=== PATIENT | male | born 1945 | race Caucasian/White ===

== ENCOUNTER 2018-04-14 08:46 | Emergency (ER) | payer MEDICARE ==
[~2018-04-14] VITALS: Ht 193 cm; Wt 81.0 kg
[2018-04-14 08:49] VITALS: BP 146/84
[2018-04-14] MEDS ORDERED: ASPI-650 PO (09:54)
[2018-04-14] MEDS ORDERED: AMLO10TA2 PO (09:54)
[2018-04-14] MEDS ORDERED: CHOLESTEROL (09:54)
[2018-04-14] MEDS ORDERED: ATEN50TA41 PO (09:54)
== END 2018-04-14 10:37 | disposition home or self-care (01) ==
LOC: ED 10:31
DX: M25.562 Pain in left knee (principal); M70.42 Prepatellar bursitis, left knee; X58.XXXA Exposure to other specified factors, initial encounter; Y93.89 Activity, other specified; Y99.8 Other external cause status; Y92.009 Unspecified place in unspecified non-institutional (private) residence as the place of occurrence of the external cause
CPT/HCPCS: 99284

== ENCOUNTER 2018-10-18 20:53 | Emergency (ER) | payer MEDICARE ==
[~2018-10-18] VITALS: Ht 193 cm; Wt 84.6 kg
[~2018-10-18 20:53] MED LIST: AMLO10TA8 PO; ASPI-650 PO; ATEN50TA41 PO; CHOLESTEROL
--- NOTE | 2018-10-18 21:35 | NUR ---
PT REPORTS LEFT SIDED CHEST PAIN 12/14 SINCE THIS MORNING THAT COMES AND GOES. 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 NSR NOTED. CALL LIGHT IN PLACE. VS STABLE. PT SEEN BY DR ARRIAGA. LAB IN ROOM. WILL CONTINUE TO MONITOR.
[2018-10-18] MEDS ORDERED: METOPROLOL PO (21:45)
[2018-10-18] MEDS ORDERED: ATOR40TA78 PO (21:45)
[2018-10-18 21:48] LABS: BASOPHILS % (AUTO) 2 % (0-1); EOSINOPHILS # (AUTO) 0.15 x10^3/uL (0-0.4); EOSINOPHILS % (AUTO) 2 % (1-7); LYMPHOCYTES # (AUTO) 1.85 x10^3/uL (1-3.4); LYMPHOCYTES % (AUTO) 27 % (22-44); MD NO; MEAN CORPUSCULAR HEMOGLOBIN 31.6 pg (27.5-34.5); MEAN CORPUSCULAR HGB CONC 33.9 g/dL (33.2-36.2); MEAN CORPUSCULAR VOLUME 93.2 fL (81-97); MEAN PLATELET VOLUME 10.4 fL (7.4-10.4); MONOCYTES # (AUTO) 0.98 x10^3/uL (0.2-0.8); MONOCYTES % (AUTO) 14 % (2-9); NEUTROPHILS # (AUTO) 3.74 x10^3/uL (1.8-6.8); NEUTROPHILS % (AUTO) 55 % (42-75); PLATELET COUNT 173 x10^3/uL (130-400); RED BLOOD COUNT 4.61 x10^6/uL (4.38-5.82); RED CELL DISTRIBUTION WIDTH 14.4 % (9.4-14.8)
[2018-10-18 21:54] LABS: ALANINE AMINOTRANSFERASE 28 U/L (12-78); ALBUMIN 3.4 g/dL (3.4-5.0); ANION GAP 6 mmol/L (5-15); CALCIUM 8.4 mg/dL (8.5-10.1); CHLORIDE 108 mmol/L (98-107); CREATININE 1.43 mg/dL (0.7-1.3)
[2018-10-18 21:59] LABS: ALKALINE PHOSPHATASE 88 U/L (45-117); BILIRUBIN,TOTAL 0.6 mg/dL (0.2-1.0); TROPONIN I < 0.015 ng/mL (0.000-0.045)
--- NOTE | 2018-10-18 22:19 | NUR ---
PT RESTING IN ROOM. JAW SKINNER ON. NO ACUTE DISTRESS NOTED. CALL LIGHT IN PLACE. WILL CONTINUE TO MONITOR.
[2018-10-18 22:47] VITALS: BP 116/84
== END 2018-10-18 23:30 | disposition home or self-care (01) ==
LOC: ED 21:29
DX: R07.89 Other chest pain (principal)
CPT/HCPCS: 36415; 71045; 80053; 83880; 84484; 85025; 93005; 99284

== ENCOUNTER 2019-12-15 02:29 | Emergency (ER) | payer MEDICARE ==
[~2019-12-15] VITALS: Ht 193 cm; Wt 80.7 kg
[~2019-12-15 02:29] MED LIST changes: +ATOR40TA78 PO; +METOPROLOL PO
[2019-12-15] MEDS ORDERED: ACETAMINOPHEN 325 MG TABLET PO ONE (03:00)
--- NOTE | 2019-12-15 03:07 | NUR ---
Pt alert and resting on gurney. MD at bedside. Pt reports fever, cough and feeling unbalanced. Mask in place. MD swabbed pt for flu. Pt informed RN that he has stage IV kidney disease and has to self catheterize at home. updated. Order for urine sample received. Pt given straight urine cath kit and instructions for aseptic tenchique. Pt VU.
[2019-12-15] MEDS ORDERED: ACETAMINOPHEN 325 MG TABLET ONE (03:22)
[2019-12-15 03:24] LABS: RAPID INFLUENZA A POSITIVE (Negative); RAPID INFLUENZA B Negative (Negative)
--- NOTE | 2019-12-15 03:29 | NUR ---
Urine sent. Pt reports he normally has some bacteria in his urine. Pt medicated with tylenol and given ice water - okay per .
[2019-12-15 03:59] LABS: MICROSCOPIC AUTO
[2019-12-15 04:02] LABS: CULTURE INDICATED? YES
--- NOTE | 2019-12-15 04:24 | NUR ---
Pt alert and resting on gurney. VS retaken. Temp now 99.9f. Pt aware of wait for xray results. Call light within reach.
[2019-12-15 05:14] VITALS: BP 123/74
--- NOTE | 2019-12-15 05:14 | NUR ---
Pt d/c'd to self care. Pt alert, oriented and ambulatory. NAD. Pt educated on home care, prescriptions, OTC meds and follow-up. Pt VU. Pt ambulated out of ER.
--- NOTE | 2019-12-15 05:32 | NUR ---
Dr. Willis updated this RN that pt is positive for UTI. This RN spoke with pt over phone and updated pt. Pharmacy info updated. Dr. Willis to send RX over. Pt aware.
== END 2019-12-15 05:17 | disposition home or self-care (01) ==
LOC: ED 05:00
DX: J10.1 Influenza due to other identified influenza virus with other respiratory manifestations (principal); N30.00 Acute cystitis without hematuria; I10 Essential (primary) hypertension
CPT/HCPCS: 71046; 81001; 87077; 87086; 87400; 99284

== ENCOUNTER 2021-02-17 10:54 | Emergency (ER) | payer MEDICARE ==
[~2021-02-17] VITALS: Ht 193 cm; Wt 77.1 kg
[~2021-02-17 10:54] MED LIST changes: +AMLO-211 PO; -AMLO10TA8 PO; +ASPI-1026 PO; -ASPI-650 PO
[2021-02-17 10:57] VITALS: BP 152/83
--- NOTE | 2021-02-17 11:38 | NUR ---
PT SITTING UP IN CHAIR AWAITING CT OF ABDOMEN. PT STATES RIGHT FLANK PAIN FOR 2.5 WEEKS. PT SELF CATHS AND DENIES ANY CHANGE IN URINE.
== END 2021-02-17 12:41 | disposition home or self-care (01) ==
LOC: ED 11:38
DX: K59.00 Constipation, unspecified (principal); M54.6 Pain in thoracic spine; R10.9 Unspecified abdominal pain; I10 Essential (primary) hypertension
CPT/HCPCS: 74176; 99284

== ENCOUNTER → 2021-04-18 | Outpatient (CLI) | payer MEDICARE | END | disposition home or self-care (01) | LOC: CFH 07:49 | PROVIDERS: ATTEND Internal Medicine Cardiovascular Disease | DX: I08.8 Other rheumatic multiple valve diseases (principal); I25.10 Atherosclerotic heart disease of native coronary artery without angina pectoris; I11.9 Hypertensive heart disease without heart failure | CPT/HCPCS: 78452; 93017; 93306; A9502 ==